=== PATIENT | male | born 1965 | race Caucasian/White ===

== ENCOUNTER 2023-01-29 23:51 | Emergency (ER) | payer OTHER, SELFPAY ==
[2023-01-29 23:53] VITALS: BP 157/85; PULSE 90; RESP 19; TEMP 37.2; O2SAT 97; BMI 23.5
--- NOTE | 2023-01-30 00:19 | EKG12_ITS ---
Test Reason : CP Blood Pressure : / mmHG Vent. Rate : 092 BPM Atrial Rate : 092 BPM P-R Int : 188 ms QRS Dur : 104 ms QT Int : 380 ms P-R-T Axes : 049 003 058 degrees QTc Int : 469 ms Normal sinus rhythm Nonspecific ST abnormality Abnormal ECG Confirmed by RAYMUNDO BANGURA, AARON ([id number]), editor news KIM PISANO ([id number]) on 02/01/2023 1:02:12 PM Referred By: Confirmed By:AARON FONSECA MD
--- NOTE | 2023-01-30 00:19 | RAD_ITS ---
STUDY: X-RAY CHEST REASON FOR EXAM: Male, 57 years old. Chest pain TECHNIQUE: Single AP portable view of the chest. COMPARISON: None. FINDINGS: The lungs are clear and expanded. There is no demonstrated pleural abnormality. Normal size heart. Normal mediastinum and ary. Normal visualized pulmonary arteries. Normal visualized aortic arch and descending thoracic aorta. Normal visualized thoracic spine. Normal visualized ribs, clavicles, and shoulders. There is no demonstrated abnormality of the visualized soft tissue structures of the upper abdomen. RAD/Chest 1 View (Portable) IMPRESSION: Normal x-ray examination of the chest. Electronically Signed: Apple Biswas MD at 1:05 EDT Reading Location ID and State: [facility] / [place] Tel , Service support ,
[2023-01-30 00:26] LABS: Absolute Lymphocyte Count 2.13 X10^3/uL (0.83-4.51); Absolute Neutrophil Count 5.3 X10^3/uL (2.0-7.7); Basophil# 0.05 X10^3/uL; Basophil% 0.6 % (0-1); Eosinophil# 0.13 X10^3/uL; Eosinophils% 1.6 % (0-5); Hematocrit 44.3 % (40-54); Hemoglobin 14.8 g/dL (13.0-16.5); Lymphocyte # 2.13 X10^3/ul (0.83-4.51); Lymphocyte % 25.7 % (19-41); Mean Corp Hgb Conc 33.4 g/dL (32-36); Mean Corpuscular Hgb 27.9 pg (27.0-32.0); Mean Corpuscular Volume 83.6 fL (80-94); Mean Platelet Vol. 11.7 fl (6.2-12.0); Monocyte# 0.66 X10^3/uL; NRBC Flagged by Analyzer 0 % (0-5); Neutrophil # 5.29 X10^3/uL (2.7-7.7); Neutrophil % 63.6 % (47-70); Platelet Count 212 K/mm3 (150-450); RBC Distribution Width CV 12.6 % (11.6-14.6); RBC Distribution Width SD 38.2 fl (35.1-43.9); White Blood Count 8.3 K/mm3 (4.4-11.0)
--- NOTE | 2023-01-30 00:32 | EDS_ITS ---
HPI History of Present Illness Chief Complaint: Other, Pain/Inj Informant: patient and family Narrative Narrative: 57-year-old male with a history of hypertension and acquired hypothyroidism presenting to the emergency room with left shoulder discomfort and elevated blood pressure. Patient reports that he drove home from work this evening. Around 930 he was getting out of his vehicle when he noticed some discomfort of the left shoulder. He states that intensified over the next hour. He denies any other symptoms with it such as nausea shortness of breath sweating back pain or leg pain. He states he took his blood pressure which was elevated in the 160 range and about 15 minutes later it was was higher. He states he can typically feel his blood pressure elevated if it is above 150. No known coronary artery disease. He typically walks around 4 times a week for 30 minutes each session. He has had no change in his exercise tolerance over the past several months. He describes the left shoulder discomfort as a pressure that originally started ju st underneath his AC joint and is now felt both anteriorly and posteriorly. It is worse with movement of the arm. PFSH [facility] Medical History Hypertension Thyroid cancer Home Medications potassium chloride 20 mEq tablet,extended release 40 meq (2 x 20 mEq) PO DAILY 6 days #12 tabs 01/30/23 [Rx Last Taken Unknown] Allergy/AdvReac Type Severity Reaction Status Date / Time IBUPROFEN AdvReac Swelling Uncoded 01/30/23 00:04 Surgical History H/O thyroidectomy Social History (Updated 01/30/23 @ 00:[address] Reginald Kohler DO) Smoking Status: Former smoker substance use type: does not use ROS ROS ED Constitutional Constitutional ED: Denies chills or weight loss Eyes Eyes: Denies change in vision or diplopia ENT ENT ED: Denies ear pain, rhinorrhea or sore throat Cardiovascular Cardiovascular: Denies chest pain, orthopnea, palpitations or racing heartbeat Respiratory/Chest Respiratory/Chest: Denies cough, dyspnea or orthopnea Gastrointestinal Gastrointestinal: Denies abdominal pain, diarrhea, nausea or vomiting Genitourinary Genitourinary ED: Denies dysuria, hematuria or urinary frequency Musculoskeletal Musculoskeletal: Reports other Details: Left shoulder pain ; Denies arthralgias, back pain, myalgias or neck pain Integumentary Denies abscess or rash Neurologic Neurologic: Denies headache(s) or weakness Psychiatric Psychiatric: Denies anxiety, depression, suicidal ideation or suicidal thoughts Endocrine Endocrinology: Denies polydipsia, polyphagia or polyuria Allergic/Immunologic Allergic/Immunologic ED: Denies mouth swelling, tongue swelling or urticaria EXAM Physical Exam Const Vital Signs: 01/29/23 23:53 01/30/23 00:02 01/30/23 01:04 Temperature 99.0 F Temperature Source Temporal Pulse Rate 90 93 Respiratory Rate 19 H 21 H Respiratory Effort Normal Non-Labored Respiratory Pattern Normal Blood Pressure 157/85 H 160/83 H Blood Pressure Mean 109 108 Pulse Ox 97 96 Oxygen Delivery Method Room Air Room Air Positive well nourished and well developed General Appearance ED: well developed HEENT Reports normocephalic, head/scalp atraumatic and moist mucous membranes Eyes PERRL and EOMs intact bilaterally Neck no lymphadenopathy, supple and no JVD Resp normal respiratory effort and clear to auscultation bilaterally Cardio regular rate, regular rhythm and no murmurs GI normal to inspection, nondistended, normoactive bowel sounds and non-tender Palpation: soft Back/Spine no CVA tenderness and normal ROM Extremity Extremity Narrative: Painful range of motion of the left shoulder. Neurovascular intact. No deformities. General Extremety ED: Negative for edema General Extremity: Negative for edema Neuro oriented x3 and CN's II-XII intact bilaterally Sensorium / Orientation: alert Motor Exam: strength 5/5 throughout Psych mental status grossly normal Mood & Affect: Negative for depressed or tearful Skin no rashes or lesions noted and no wounds MDM MDM MDM Narrative Medical decision making narrative: Interpretation of the one-view portable chest x-ray is no acute process. Normal mediastinal silhouette. The patient's potassium returns at 2.7. This is most likely low due to his triamterene-HCTZ medication. He received 40 mill equivalents p.o. Creatinine slightly elevated 1.31 with a BUN of 21. His glucose is 164. Therefore hemoglobin A1c was added and returned slightly elevated at 5.9. Patient was updated about the above and was encouraged to establish primary care provider to follow-up with as he is currently without a PCP. Initial troponin returns at 7. Delta troponin was ordered. This also returned in the normal range. At this point I do not see evidence of ACS dissection pulmonary embolism or other acute intrathoracic emergency. His potassium replaced over the next several days. Received Toradol for the shoulder discomfort which I believe is musculoskeletal. His blood pressure has come down currently 144/82 History & Record Review Discussion w/independent historian: Patient and Family Lab Data Attestation: I reviewed the patient's lab results. Labs: Laboratory Results - last 24 hr 01/30/23 01/30/23 00:08 02:30 WBC 8.3 RBC 5.30 Hgb 14.8 Hct 44.3 MCV 83.6 MCH 27.9 MCHC 33.4 RDW Std Deviation 38.2 RDW Coeff of Nathan 12.6 Plt Count 212 MPV 11.7 Immature Gran % (Auto) 0.500 Neut % (Auto) 63.6 Lymph % (Auto) 25.7 [place] % (Auto) 8.0 Eos % (Auto) 1.6 Baso % (Auto) 0.6 Absolute Neuts (auto) 5.3 Absolute Lymphs (auto) 2.13 Nucleated RBC % 0 Sodium 137 Potassium 2.7 L* Chloride 98 Carbon Dioxide 31.0 Anion Gap 8 BUN 21 H Creatinine 1.31 H Estim Creat Clear Calc 62.96 Est GFR (MDRD) Af Amer 73 Est GFR (MDRD) Non-Af 60 BUN/Creatinine Ratio 16.0 Glucose 164 H Hemoglobin A1c 5.9 H Calcium 9.6 Troponin I High Sens 7 6 Radiography Diagnostic Testing: Clinical Impression(s) from Imaging Studies Chest X-Ray 01/30/23 00:19 IMPRESSION: Normal x-ray examination of the chest. Electronically Signed: Apple Biswas MD at 1:05 EDT , EKG Initial EKG: Attestation: I personally reviewed and interpreted this EKG as follows: Comments: Normal sinus rhythm with a ventricular rate of 92 bpm. No concerning features of ACS noted Differential Diagnosis Chest pain/SOB: pulmonary embolism, ACS, pneumothorax, pneumonia, aortic dissection and CHF Discharge Plan Triage Chief Complaint: Other, Pain/Inj ED Provider: Reginald Kohler Dx/Rx/DC Orders Clinical Impression: Left shoulder pain, Hypertension, Hypokalemia Instructions: ED Hypokalemia Prescriptions: New potassium chloride 20 mEq tablet extended release 40 meq PO DAILY 6 Days Qty: 12 0RF Primary Care Provider: Care Physician,No Primary Activity Restrictions/Additional Instructions: Please is Primary care and follow-up. You will need your potassium rechecked as today it was 2.7. Please let them know that your hemoglobin A1c today is 5.9. Disposition Disposition: Home, Self Care
[2023-01-30 00:56] LABS: Anion Gap 8 (5-15); BUN 21 mg/dL (7-18); Calcium,Total 9.6 mg/dL (8.5-10.1); Chloride 98 mmol/L (98-107); Creatinine, Serum 1.31 mg/dL (0.70-1.30); EST Glomerular Filtration Rate 60 mL/min (>60); Est Glom Filt Rate - Afr Amer 73 mL/min (>60); Estimated Creatinine Clearance 62.96 ml/min; Glucose 164 mg/dL (74-106); Potassium 2.7 mmol/L (3.5-5.1); Sodium Level 137 mmol/L (136-145); Troponin-I HS (w/2H Reflex) 7 pg/mL (3.0-78.0)
[2023-01-30] MEDS: Potassium Chloride Oral Tablet 20 MEQ 40 MEQ PO (01:03)
[2023-01-30 01:04] VITALS: BP 160/83; PULSE 93; RESP 21; O2SAT 96
[2023-01-30 01:50] LABS: Hemoglobin A1c 5.9 % (3.8-5.6)
[2023-01-30 02:22] LABS: Reflex Troponin-HS? (from REC) Y
[2023-01-30 02:53] LABS: Troponin-I HS 6 pg/mL (3.0-78.0)
[2023-01-30 03:07] VITALS: BP 145/80; PULSE 79; RESP 15; O2SAT 96
[2023-01-30] MEDS: Ketorolac 15 MG/ML Vial IV (03:13)
== END 2023-01-30 03:22 | disposition home or self-care (01) ==
PROVIDERS: Emergency Provider Emergency Medicine; Visit Provider Emergency Medicine
DX: M25.512 Pain in left shoulder (principal); I10 Essential (primary) hypertension; E87.6 Hypokalemia; Z87.891 Personal history of nicotine dependence
CPT/HCPCS: 71045; 80048; 83036; 84484; 85025; 93005; 96374; 99284; A4216